=== PATIENT | female | born 1990 | race American Indian/Alaskan Native ===

== ENCOUNTER 2018-10-22 09:14 | Outpatient (CLI) | payer BC ==
--- NOTE | 2018-10-22 12:06 | Ultrasound Report ---
ULTRASOUND PELVIS COMPLETE - TRANSABDOMINAL AND TRANSVAGINAL: INDICATION: Pelvic pain. COMPARISON: None similar at this institution. FINDINGS: Transabdominal and transvaginal pelvic sonography demonstrates an 8.1 x 3.5 x 4.4 cm homogenous, anteverted uterus with a well positioned IUD along the endometrium. Bilaminar endometrial thickness 0.9 cm. Minimal physiologic pelvic free fluid. Normal imaged urinary bladder. Right ovary is 3.4 x 1.6 x 0.9 cm with an intrinsic 2.8 x 1.2 cm cyst, endovaginal image 20. Left ovary unremarkable at 3.3 x 1.8 x 2.1 cm. CONCLUSION: No acute pelvic sonographic abnormality with IUD seen, as described. Thank you for the opportunity to participate in this patient's care.
== END 2018-10-22 09:15 | disposition home or self-care (01) ==
LOC: US 09:14
PROVIDERS: ATTEND Obstetrics & Gynecology
DX: R10.2 Pelvic and perineal pain (principal)
CPT/HCPCS: 76830; 76856

== ENCOUNTER 2022-01-08 08:40 | Outpatient (CLI) | payer BC, OTHER ==
[2022-01-08] MEDS ORDERED: LACTATED RINGERS 500 ML IV ONE (09:06)
[2022-01-08 09:25] VITALS: BP 127/82
[2022-01-08 09:46] LABS: Bacteria,Urine 2+ /HPF (Negative); Bilirubin,Urine NEG (Negative); Blood,Urine NEG (Negative); Color,Urine Yellow (Yellow); Hyaline Casts,Urine 1 /LPF; Mucus,Urine FEW /HPF; Protein,Urine <15 mg/dL mg/dL (Negative); Urobilinogen,Urine < 2.0 mg/dL (<2.0)
== END 2022-01-08 12:40 | disposition home or self-care (01) ==
LOC: TRG 08:40 → APU 08:41 → TRG 12:40
PROVIDERS: ATTEND Obstetrics & Gynecology
DX: O26.892 Other specified pregnancy related conditions, second trimester (principal); R10.30 Lower abdominal pain, unspecified; Z3A.26 26 weeks gestation of pregnancy
CPT/HCPCS: 59025; 81001; 87086

== ENCOUNTER 2022-04-14 11:30 | Inpatient (IN) | payer OTHER ==
[2022-04-14] MEDS ORDERED: TERBUTALINE 1 MG/1 ML INJ SUB-Q PRN (11:41)
[2022-04-14] MEDS ORDERED: ePHEDrine SULFATE 50 MG/1 ML INJ IV PRN ×2 (11:41→12:51)
[2022-04-14] MEDS ORDERED: OXYTOCIN 10 UNIT/1 ML INJ IM PRN (11:41)
[2022-04-14] MEDS ORDERED: LOPERAMIDE 2 MG CAP PO PRN (11:41)
[2022-04-14] MEDS ORDERED: miSOPROStol 200 MCG TAB PR PRN (11:41)
[2022-04-14] MEDS ORDERED: CARBOPROST TROMETHAMINE 250 MCG/1 ML INJ IM PRN (11:41)
[2022-04-14] MEDS ORDERED: AMPICILLIN/NS 2 GM/100 ML 2 GM/100 ML BAG IV ONE (11:41)
[2022-04-14] MEDS ORDERED: METHYLERGONOVINE MALEATE 0.2 MG/ML VIAL IM PRN (11:41)
[2022-04-14] MEDS ORDERED: BUTORPHANOL 2 MG/1 ML INJ IV PRN (11:41)
[2022-04-14] MEDS ORDERED: fentaNYL 100 MCG/2 ML INJ IV PRN (11:41)
[2022-04-14] MEDS ORDERED: NalbUPHINE 10 MG/1 ML INJ IV PRN ×2 (11:41→12:51)
[2022-04-14] MEDS ORDERED: MINERAL OIL 30 ML ORAL LIQD PO PRN (11:41)
[2022-04-14] MEDS ORDERED: LIDOCAINE (2%) 20 MG/1 ML VIAL 20 ML MDV INFILTRATI ONE (11:41)
[2022-04-14] MEDS ORDERED: ACETAMINOPHEN 325 MG TAB PO PRN (11:41)
[2022-04-14] MEDS ORDERED: ONDANSETRON 4 MG/2 ML INJ IV PRN ×2 (11:41→12:51)
[2022-04-14] MEDS ORDERED: LACTATED RINGERS 1,000 ML IV SCH (11:45)
--- NOTE | 2022-04-14 11:46 | History and Physical Report ---
History of Present Illness Date of examination: 04/14/22 Chief complaint: SROM 0900 History of present illness: EDC Calculations LMP: 04/10/2022 Past History : 3 Term Births: 2 Premature Births: 0 Living Children: 2 Para: 2 Mult. Births: 0 Prev : 0 Prev. attempt? 0 Aborta: 0 Elect. Ab: 0 Spont. Ab: 0 Ectopics: 0 # 1 Delivery date: 2013 Weeks Gestation: 41 labor: no Delivery type: Anesthesia type: epidural [facility] Sex: Male weight: 6lbs Comments: IOL for PD, denies complications # 2 Delivery date: 2015 Weeks Gestation: 36 labor: yes Delivery type: Hours of labor: 30mins Anesthesia type: none Delivery location[facility] Sex: Male weight: 6lbs Comments: precipitous delivery at 36wks Past Medical History: Reviewed history from 05/20/2011 and no changes required: Negative Past Medical History Past Surgical History: Reviewed and updated today: negative Family History Summary: Mother - Has Family History of Hypertension - Entered On: 08/12/2021 General Comments - FH: Family History of Hypertension maternal grandaunt- breast cancer Social History: Reviewed history from 12/15/2019 and no changes required: Patient is Smoking History: Patient has never smoked. 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 % Family History Risk Factors: Family History of AR in 1 Female Relative Age < 65: no Family History of AR in 1 Male Relative Age < 55: no No Dietary Counseling Reason: pn yes PAP Smear History: Date of Last PAP Smear: 12/26/2020 Results: Normal Alcohol Use: no Drug Use: no Past Medical History Anesthesia Complications: negative Anemia: negative Autoimmune Disorder: negative Bleeding Disorder: negative Blood Transfusions: negative Breast Disease: negative Diabetes: negative Heart Disease: negative Hypertension: negative Hepatitis/Liver Disease: negative Kidney Disease/UTI: negative Neurologic/Epilepsy/Migraines: negative Phlebitis/Varicosities: negative Psychiatric: negative Pulmonary Disease/Asthma: negative Thyroid Disease: negative Hospitalizations: negative Surgery (Non-vp product): negative Abnormal PAP: negative YULISA Exposure: negative Infertility: negative Uterine Anomaly: negative Uterine Surgery (not C/S): negative Other Gynecologic Problems: negative Family Hx: Family History of Hypertension maternal grandaunt- breast cancer Social Hx: Patient is Smoking History: Patient has never smoked. Infection History Hx of STD: none HIV Risk Eval: no Hepatitis B Risk Eval: low risk Personal hx. of genital herpes: no Partner hx. of genital herpes: no Rash, Viral, or Febrile illness since last LMP? no Varicella/Chicken Pox Status: Previous Disease TB Risk: no Genetic History Congenital Heart Defect: Mom: no Dad: no Yuriy Disease: Mom: no Dad: no Thalassemia Mom: no Dad: no Neural Tube Defect Mom: no Dad: no Down's Syndrome Mom: no Dad: no Adriano-Sachs Mom: no Dad: no Sickle Cell Disease/Trait Mom: no Dad: no Hemophilia Mom: no Dad: no Muscular Dystrophy Mom: no Dad: no Cystic Fibrosis Mom: no Dad: no [place] Chorea Mom: no Dad: no Mental Retardation Mom: no Dad: no Fragile X Mom: no Dad: no Other Genetic/Chromosomal Disorder Mom: no Dad: no Child w/other defect Mom: no Dad: no Enviromental Exposures Enviromental Exposures Reviewed Xray Exposure: no Medication, drug, or alcohol use since LMP: no Chemical/Other Exposure: no Exposure to Cat Liter: no Hx of Parvovirus (Fifth Disease): no Occupational Exposure to Children: none Active Medications (reviewed today): PLUS 27-1 MG ORAL TABLET ( VIT-FE FUMARATE-FA) 1 po daily Current Allergies (reviewed today): Latex Past History Past Medical History: other (see HPI) Past Surgical History: other (see HPI) 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 (see HPI) Family/Genetic History: other (see HPI) Social history: no significant social history, - Obstetrical History Expected Date of Delivery: 04/10/22 Actual Gestation: 40 Week(s) 4 Day(s) : 3 Para: 2 Hx # Term Pregnancies: 1 Number of Pregnancies: 1 Spontaneous Abortions: 0 Induced : 0 Number of Living Children: 2 Medications and Allergies Allergies Allergy/AdvReac Type Severity Reaction Status Date / Time Latex, Natural Rubber AdvReac Anaphylaxis Verified 01/08/22 09:05 Active Meds: Active Medications Acetaminophen (Acetaminophen 325 Mg Tab) 650 mg PO Q4H PRN PRN Reason: Pain, Mild (1-3) Butorphanol Tartrate (Butorphanol 2 Mg/1 Ml Inj) 2 mg IV Q2H PRN PRN Reason: Pain , Severe (7-10) Carboprost Tromethamine (Carboprost Tromethamine 250 Mcg/1 Ml Inj) 250 mcg IM ONCE PRN PRN Reason: Uterine Bleeding Ephedrine Sulfate (Ephedrine Sulfate 50 Mg/1 Ml Inj) 10 mg IV Q2M PRN PRN Reason: Hypotension Fentanyl (Fentanyl 100 Mcg/2 Ml Inj) 100 mcg IV Q2H PRN PRN Reason: Pain,Severe (7-10) LABOR PAIN Oxytocin/Sodium Chloride (Pitocin/Ns 30 Unit/500ml) 30 units in 500 mls @ 2 mls/hr IV TITR MACIEL; Protocol Lactated Ringer's (Lactated Ringers) 1,000 mls @ 125 mls/hr IV DIRECT MACIEL Oxytocin/Sodium Chloride (Pitocin/Ns 30 Unit/500ml) 30 units in 500 mls @ 40 mls/hr IV TITR MACIEL; Protocol Ampicillin Sodium (Ampicillin/Ns 2 Gm/100 Ml) 2 gm in 100 mls @ 100 mls/hr IV ONCE ONE; Protocol Stop: 04/14/22 12:40 Ampicillin Sodium (Ampicillin/Ns 1 Gm/50 Ml) 1 gm in 50 mls @ 100 mls/hr IV Q4H MACIEL; Protocol Loperamide HCl (Loperamide 2 Mg Cap) 2 mg PO ONCE PRN PRN Reason: give with Hemabate Methylergonovine Maleate (Methylergonovine Maleate 0.2 Mg/Ml Vial) 0.2 mg IM ONCE PRN PRN Reason: Uterine Bleeding Mineral Oil (Mineral Oil 30 Ml Oral Liqd) 30 ml PO QHS PRN PRN Reason: Constipation Misoprostol (Misoprostol 200 Mcg Tab) 800 mcg [place] ONCE PRN PRN Reason: Uterine Bleeding Nalbuphine HCl (Nalbuphine 10 Mg/1 Ml Inj) 10 mg IV Q2H PRN PRN Reason: Pain, Moderate (4-6) Ondansetron HCl (Ondansetron 4 Mg/2 Ml Inj) 4 mg IV Q8H PRN PRN Reason: Nausea And Vomiting Oxytocin (Oxytocin 10 Unit/1 Ml Inj) 10 unit IM ONCE PRN PRN Reason: Uterine Bleeding Terbutaline Sulfate (Terbutaline 1 Mg/1 Ml Inj) 0.25 mg SUB-Q ONCE PRN PRN Reason: Hyperstimulation/Hypertonicity Review of Systems All systems: negative - Physical Exam Breasts: Positive: normal Cardiovascular: Regular rate Lungs: Positive: Normal air movement Abdomen: Positive: normal appearance, soft Genitourinary (Female): Positive: normal external genitalia, normal perenium Vulva: both: normal Vagina: Positive: normal moisture (+ light mec fluid) Uterus: Positive: normal size Anus/Rectum: Positive: normal perianal skin Extremities: Positive: normal Deep Tendon Reflex Grade: Normal +2 - Obstetrical FHR: category 1 Uterine Contraction Monitor Mode: External Cervical Dilatation: 4 (SROM - light mec) Cervical Effacement Percentage: 70 station: -1 Uterine Tone Measurement Phase: Contraction Uterine Contraction Intensity: Moderate Results All other labs normal. Assessment and Plan 32 y/o @ 40+5 admitted in labor, SROM @ 0900 light mec. EFW in office 04/10 8#2oz. GBS +. Inital b/p elevated, will monitor, pre-e labs ordered. - Patient Problems (1) 40 weeks gestation of Current Visit: Yes Status: Acute (2) SROM (spontaneous rupture of membranes) Current Visit: Yes Status: Acute Plan to address problem: temp per protocol limit SVE monitor s/s chorio (3) GBS carrier Current Visit: Yes Status: Acute Plan to address problem: ampicillin q4h until delivery
[2022-04-14] MEDS ORDERED: OXYTOCIN DRIP 30 UNITS/500 ML BAG IV SCH ×2 (12:00)
[2022-04-14 12:29] LABS: Hematocrit 36.5 % (30.3-42.9); Hemoglobin 12.3 gm/dl (10.1-14.3); Mean Corpuscular HGB Conc 34 % (30-34); Mean Corpuscular Volume 96 fl (79-97); Platelet Count 173 K/mm3 (140-440); Red Blood Count 3.81 M/mm3 (3.65-5.03); Red Cell Distribution Width 14.6 % (13.2-15.2)
[2022-04-14 12:40] LABS: Alanine Aminotransferase 9 units/L (7-56); Uric Acid 6.5 mg/dL (3.5-7.6)
[2022-04-14] MEDS ORDERED: diphenhydrAMINE 50 MG/ML VIAL IV PRN (12:51)
[2022-04-14] MEDS ORDERED: LACTATED RINGERS 250 ML IV SOLN IV ONE (12:51)
[2022-04-14] MEDS ORDERED: NALOXONE 0.4 MG/1 ML INJ IV PRN (12:51)
[2022-04-14] MEDS ORDERED: fentaNYL-BUPIV 2 MCG/ML-0.125% 200 MCG/100 ML BAG EPIDURAL SCH (13:00)
--- NOTE | 2022-04-14 13:14 | Procedure Note ---
OB Delivery Note - Delivery Date of Delivery: 04/14/22 Slot Operations Director: MALKA CORTEZ (Roly WANG) Estimated blood loss: <100cc - Vaginal Delivery presentation: vertex Delivery position: OA (ISMAEL) Intrapartum events: meconium, precipitous labor- <3hr Delivery induction: none Delivery monitor: external FHT, external uterine Route of delivery: Delivery placenta: spontaneous Delivery cord: true knot (x1), 3 umbilical vessels Episiotomy: none Delivery laceration: none Anesthesia: none Delivery comments: live female delivered over intact perineum, precipitous delivery with moderate meconium, baby to mothers chest, cord clamped and cut after cessation of pulsation. Placenta delivery spontaneously intact, true knot in cord. No lacerations noted. Baby 7lb 60z, apgars 8/9. Mother and baby stable upon leaving room, baby in fathers arms. - Infant A at 1 minute: 8 at 5 minutes: 9 Infant Gender: Female (7#6oz)
--- NOTE | 2022-04-14 13:35 | Event Note ---
Date: 04/14/22 elevated b/p's in labor likely due to pain associated with precipitous labor, b/p's 130's/60's. no s/s pre-e (Heller/epigastric pain or visual changes.) pre-e blood work wnl, urine has not yet been sent down d/t quickness of labor. Will continue to monitor blood pressures and for any s/s pre-e, will consider mag sulfate if needed.
--- NOTE | 2022-04-14 13:52 | Event Note ---
Date: 04/14/22 Next 3 blood pressures 150's/80's. Plan discussed with patient and s/o to stay on l&D for mag sulfate therapy d/t elevated blood pressures. all questions addressed.
[2022-04-14] MEDS ORDERED: WITCH HAZEL/ GLYCERIN PAD TP PRN (13:58)
[2022-04-14] MEDS ORDERED: BENZOCAINE/MENTHOL 20/0.5% TOP SPRAY 56 GM TP PRN (13:58)
[2022-04-14] MEDS ORDERED: KETOROLAC 30 MG/1 ML INJ IV PRN (13:58)
[2022-04-14] MEDS ORDERED: LANOLIN/ZINC/DIMETHICONE (LANSINOH) 7 GM TP PRN (13:58)
[2022-04-14] MEDS ORDERED: PROMETHAZINE 25 MG TAB PO PRN (13:58)
[2022-04-14] MEDS ORDERED: MAGNESIUM HYDROXIDE (MOM) ORAL LIQD UDC PO PRN (13:58)
[2022-04-14] MEDS ORDERED: diphenhydrAMINE 25 MG CAP PO PRN (13:58)
[2022-04-14] MEDS ORDERED: MAGNESIUM SULFATE 40GM/1000ML 40 GM/1,000 ML BAG IV SCH (14:00)
[2022-04-14] MEDS ORDERED: LACTATED RINGERS 1,000 ML ONE (14:23)
[2022-04-14] MEDS: LACTATED RINGERS 1,000 ML IV SCH (14:37)
[2022-04-14] MEDS ORDERED: AMPICILLIN/NS 1 GM/50 ML 1 GM/50 ML BAG IV SCH (16:00)
[2022-04-14] MEDS: IBUPROFEN 800 MG TAB PO SCH (19:45)
[2022-04-15 01:43] LABS: Hematocrit 33.6 % (30.3-42.9); Hemoglobin 11.1 gm/dl (10.1-14.3)
[2022-04-15] MEDS: IBUPROFEN 800 MG TAB PO SCH ×2 (04:43→23:11)
--- NOTE | 2022-04-15 08:30 | Progress Note ---
Assessment and Plan A: 32 y.o. s/p , Pre-eclampsia, on magnesium infusion. - Patient Problems (1) Pre-eclampsia in period Current Visit: Yes Status: Acute Plan to address problem: Continue with magnesium infusion. - d/t be turned off around 1530. Continue to monitor blood pressures. Monitor for worsening s/sx of Pre-eclampsia. Continue Labetalol 200mg BID. Continue to monitor I&Os. (2) (normal spontaneous vaginal delivery) Current Visit: Yes Status: Acute Plan to address problem: Continue with care. Subjective - Subjective Date of service: 04/15/22 Principal diagnosis: s/p , Pre-Eclampsia, magnesium infusion Interval history: Pt denies BISHOP, blurred vision, spots before her eyes, chest pain, upper abdominal pain, shortness of breath. We discussed the plan for the day: turn magnesium off around 1130am and transfer to mother baby unit if her blood pressures remain stable. Patient reports: appetite normal, pain well controlled, flatus : doing well Objective - Vital Signs Latest vital signs: Vital Signs Temp Pulse Resp BP Pulse Ox 04/15/22 07:44 72 113/71 04/15/22 07:03 149 H 0 L 04/15/22 07:02 73 123/72 04/15/22 06:52 68 79 L 04/15/22 06:35 93 H 90 04/15/22 06:32 76 98 04/15/22 06:27 89 96 04/15/22 06:22 79 97 04/15/22 06:17 81 96 04/15/22 06:12 86 96 04/15/22 06:07 110 H 99 04/15/22 06:02 74 98 04/15/22 05:57 77 99 04/15/22 05:52 92 H 98 04/15/22 05:47 65 98 04/15/22 05:43 71 124/64 04/15/22 05:42 65 99 04/15/22 05:37 68 99 04/15/22 05:32 67 99 04/15/22 05:27 77 98 04/15/22 05:22 70 99 04/15/22 05:17 83 99 04/15/22 05:12 73 99 04/15/22 05:07 72 100 04/15/22 05:02 76 100 04/15/22 04:57 82 99 04/15/22 04:54 92 04/15/22 04:49 111 H 90 04/15/22 04:48 141 H 92 04/15/22 04:46 98.1 F 04/15/22 04:44 71 99/56 100 04/15/22 04:39 83 100 04/15/22 04:34 85 100 04/15/22 04:29 73 99 04/15/22 04:24 69 99 04/15/22 04:19 80 99 04/15/22 04:14 79 99 04/15/22 04:09 81 100 04/15/22 04:07 68 86 04/15/22 03:54 76 97 04/15/22 03:50 83 90 04/15/22 03:49 76 98 04/15/22 03:44 71 82 L 04/15/22 03:43 75 120/75 04/15/22 03:40 50 L 89 04/15/22 03:37 71 99 04/15/22 03:32 71 99 04/15/22 03:27 68 99 04/15/22 03:22 89 99 04/15/22 03:17 70 98 04/15/22 03:12 68 98 04/15/22 03:07 70 98 04/15/22 03:02 70 98 04/15/22 02:57 70 98 04/15/22 02:52 69 98 04/15/22 02:47 71 98 04/15/22 02:43 71 122/74 04/15/22 02:42 74 98 04/15/22 02:37 96 H 98 04/15/22 02:32 80 98 04/15/22 02:27 87 99 04/15/22 02:22 81 98 04/15/22 02:17 98.0 F 79 16 98 04/15/22 02:12 80 97 04/15/22 02:10 116 H 82 L 04/15/22 02:07 74 79 L 04/15/22 02:05 59 L 82 L 04/15/22 02:01 72 98 04/15/22 01:56 72 98 04/15/22 01:51 78 98 04/15/22 01:46 85 99 04/15/22 01:44 70 121/65 04/15/22 01:41 73 98 09/06/22 01:36 74 98 04/15/22 01:31 72 98 04/15/22 01:26 82 97 04/15/22 01:21 85 99 04/15/22 01:16 71 98 04/15/22 01:11 74 98 04/15/22 01:06 80 98 04/15/22 01:01 76 96 04/15/22 00:56 81 100 04/15/22 00:51 96 H 100 04/15/22 00:50 101 H 147/93 04/15/22 00:46 98 H 83 L 04/15/22 00:45 89 04/15/22 00:34 56 L 82 L 04/15/22 00:33 75 99 04/15/22 00:28 70 99 04/15/22 00:23 78 99 04/15/22 00:18 77 97 04/15/22 00:13 69 97 04/15/22 00:08 75 97 04/15/22 00:03 74 98 04/14/22 23:58 74 99 04/14/22 23:53 69 99 04/14/22 23:48 84 98 04/14/22 23:43 80 98 04/14/22 23:38 70 99 04/14/22 23:33 80 99 04/14/22 23:28 75 96 04/14/22 23:23 110 H 82 L 04/14/22 23:18 79 76 L 04/14/22 23:16 81 97 04/14/22 23:11 85 97 04/14/22 23:06 80 97 04/14/22 23:01 91 H 98 04/14/22 22:56 98.4 F 93 H 84 04/14/22 22:51 84 98 04/14/22 22:46 78 98 04/14/22 22:43 74 120/70 04/14/22 22:41 77 98 04/14/22 22:36 76 99 04/14/22 22:31 79 96 04/14/22 22:30 65 77 L 04/14/22 21:44 72 115/55 04/14/22 21:05 83 147/77 04/14/22 19:43 86 147/91 04/14/22 19:35 98.8 F 04/14/22 19:13 95 H 99 04/14/22 19:08 86 100 04/14/22 19:03 84 100 04/14/22 18:58 96 H 99 04/14/22 18:53 84 100 04/14/22 18:48 86 100 04/14/22 18:43 88 144/82 98 04/14/22 18:38 86 100 04/14/22 18:33 91 H 99 04/14/22 18:28 80 100 04/14/22 18:23 85 99 04/14/22 18:18 86 100 04/14/22 18:13 93 H 100 04/14/22 18:10 16 99 04/14/22 18:08 87 99 04/14/22 18:06 98 H 84 04/14/22 18:03 99 H 100 04/14/22 17:58 99 H 98 04/14/22 17:50 98.3 F 16 04/14/22 17:42 100 04/14/22 17:37 67 16 97 04/14/22 17:32 70 98 04/14/22 17:27 69 98 04/14/22 17:22 71 98 04/14/22 17:17 68 97 04/14/22 17:12 69 97 04/14/22 17:07 69 99 04/14/22 17:02 78 99 04/14/22 16:57 71 99 04/14/22 16:52 74 99 04/14/22 16:47 77 99 04/14/22 16:43 68 158/88 04/14/22 16:42 69 162/91 100 04/14/22 16:37 66 16 98 04/14/22 16:32 68 99 04/14/22 16:27 72 99 04/14/22 16:21 69 147/73 100 04/14/22 16:17 77 92 04/14/22 16:12 71 100 04/14/22 16:07 72 100 04/14/22 16:01 73 146/90 99 04/14/22 15:57 76 100 04/14/22 15:52 73 100 04/14/22 15:47 89 100 04/14/22 15:42 68 100 04/14/22 15:41 67 139/72 04/14/22 15:37 74 18 100 04/14/22 15:32 79 99 04/14/22 15:31 117 H 91 04/14/22 15:14 72 156/82 04/14/22 15:12 76 100 04/14/22 15:09 76 159/94 04/14/22 15:07 73 100 04/14/22 15:04 72 149/76 04/14/22 15:02 89 99 04/14/22 15:00 87 87 04/14/22 14:59 72 158/88 04/14/22 14:57 89 98 04/14/22 14:54 78 165/83 04/14/22 14:52 84 98 04/14/22 14:49 81 171/92 04/14/22 14:47 87 99 04/14/22 14:44 69 164/84 04/14/22 14:42 75 98 04/14/22 14:40 77 161/76 04/14/22 14:38 73 85 04/14/22 14:37 73 16 99 04/14/22 14:32 77 99 04/14/22 13:53 98.8 F 16 04/14/22 13:49 82 152/81 04/14/22 13:46 74 98 04/14/22 13:44 72 154/87 04/14/22 13:41 78 98 04/14/22 13:40 85 90 04/14/22 13:37 68 153/88 04/14/22 13:35 70 100 04/14/22 13:30 87 99 04/14/22 13:24 89 98 04/14/22 13:22 88 131/61 04/14/22 13:19 91 H 99 04/14/22 13:15 84 100 04/14/22 13:14 85 85 04/14/22 13:08 98.3 F 88 134/69 04/14/22 12:53 94 H 93 04/14/22 12:52 79 100 04/14/22 12:46 86 100 04/14/22 12:42 85 99 04/14/22 12:36 114 H 98 04/14/22 12:34 81 148/92 04/14/22 12:32 84 100 04/14/22 12:27 87 98 04/14/22 12:20 98.2 F 16 04/14/22 12:03 84 146/92 04/14/22 11:46 95 H 165/100 Intake and Output 04/14/22 04/15/22 04/15/22 22:59 06:59 14:59 Output Total 3100 1600 Balance -3100 -1600 Output: Urine 3100 1600 Void 3100 1600 Other: Total, Output Amount 600 700 - Exam Cardiovascular: Present: Normal S1, Normal S2 Lungs: Present: Clear to auscultation Abdomen: Present: normal appearance, soft Uterus: Present: normal Extremities: Present: normal Deep Tendon Reflex Grade: Normal +2 - Labs Labs: Abnormal lab results 04/14/22 04/14/22 04/15/22 Range/Units 11:50 20:45 04:32 Magnesium 2.90 H 3.30 H (1.7-2.3) mg/dL Lactate Dehydrogenase 210 H (91-180) units/L
[2022-04-15] MEDS: LACTATED RINGERS 1,000 ML IV SCH (08:46)
[2022-04-15] MEDS: PRENATAL VIT27-FE FUMARATE-FOLIC ACID VIT TAB PO SCH (10:32)
[2022-04-15] MEDS ORDERED: TETANUS,DIPH,PERTUSS(ACELL) VACCINE 0.5 ML SYRINGE IM ONE (13:15)
[2022-04-16] MEDS: IBUPROFEN 800 MG TAB PO SCH ×2 (05:13→10:09)
--- NOTE | 2022-04-16 08:31 | Discharge Summary ---
Providers - Providers Date of Admission: 04/14/22 11:41 Date of discharge: 04/16/22 (desires d/c home today) Attending physician: RAMIN CLEMONS Primary care physician: RAMIN CLEMONS Hospitalization Reason for admission: Labor Condition: Good Pertinent studies: H&H 11..6 Procedures: Hospital course: and course complicated by elevated b/p Disposition: 01 HOME / SELF CARE / HOMELESS Final Discharge Diagnosis (Prints w/discharge instructions): vaginal , pre- e Time spent for discharge: 15 - Discharge Diagnoses (1) (normal spontaneous vaginal delivery) Status: Acute (2) Pre-eclampsia in period Status: Acute Core Measure Documentation - Palliative Care Palliative Care/ Comfort Measures: Not Applicable - Core Measures Any of the following diagnoses?: none Exam - Physical Exam Narrative exam: patient baby, no complaints. denies BISHOP/visual changes/epigastric pain. lochia scant, fundus firm. pt desires d/c home. - Constitutional Vitals: Temp Pulse Resp BP Pulse Ox 98.4 F 72 18 139/80 100 04/16/22 04:42 04/16/22 04:42 04/16/22 04:42 04/16/22 04:42 04/16/22 04:42 General appearance: Present: no acute distress, well-nourished - EENT Eyes: Present: PERRL ENT: hearing intact, clear oral mucosa - Neck Neck: Present: supple, normal ROM - Respiratory Respiratory effort: normal Respiratory: bilateral: CTA - Cardiovascular Rhythm: regular Heart Sounds: Absent: rub, click - Extremities Extremities: No edema Peripheral Pulses: within normal limits - Abdominal General gastrointestinal: Present: soft, non-tender, non-distended, normal bowel sounds Female genitourinary: Present: normal - Integumentary Integumentary: Present: clear, warm, dry - Musculoskeletal Musculoskeletal: gait normal, strength equal bilaterally - Psychiatric Psychiatric: appropriate mood/affect, intact judgment & insight - Neurologic Neurologic: CNII-XII intact, moves all extremities Plan Activity: no restrictions Diet: regular Follow up with: RAMIN CLEMONS MD [Primary Care Provider] - 7 Days (Congratulations! Please call [phone] to schedule a blood pressure check in 1 week. Call if you have any headaches, visual changes or pain in your upper abdomen/chest. ) Prescriptions: labetaloL [Labetalol 200mg TAB] 200 mg PO BID #60 tab Ibuprofen [Motrin 800 MG tab] 800 mg PO Q8HR PRN #30 tablet PRN Reason: Pain
[2022-04-16] MEDS: PRENATAL VIT27-FE FUMARATE-FOLIC ACID VIT TAB PO SCH (10:10)
[2022-04-16 12:27] VITALS: BP 140/80
== END 2022-04-16 13:10 | disposition home or self-care (01) | DRG 807 ==
LOC: TRG 11:30 → APU 11:32 → TRG 11:52 → LD 12:11 → OB 04-15 15:43
PROVIDERS: ADMIT Obstetrics & Gynecology; ATTEND Obstetrics & Gynecology
PROC: 10E0XZZ Delivery of Products of Conception, External Approach (ICD-10-PCS; principal; 2022-04-14)
PROC: 3E0R3BZ Introduction of Anesthetic Agent into Spinal Canal, Percutaneous Approach (ICD-10-PCS; 2022-04-14)
PROC: 00HU33Z Insertion of Infusion Device into Spinal Canal, Percutaneous Approach (ICD-10-PCS; 2022-04-14)
PROC: 3E0234Z Introduction of Serum, Toxoid and Vaccine into Muscle, Percutaneous Approach (ICD-10-PCS; 2022-04-15)
DX: O77.0 Labor and delivery complicated by meconium in amniotic fluid (principal); Z37.0 Single live birth; Z3A.40 40 weeks gestation of pregnancy; Z20.822 Contact with and (suspected) exposure to COVID-19; O62.3 Precipitate labor; O69.2XX0 Labor and delivery complicated by other cord entanglement, with compression, not applicable or unspecified; O14.95 Unspecified pre-eclampsia, complicating the puerperium; Z23 Encounter for immunization
CPT/HCPCS: 36415; 82565; 83615; 83735; 84450; 84460; 84550; 85014; 85018; 85027; 86592; 86850; 86900; 86901; G0378; J0290; J2405; J3475; J7120; U0003